=== PATIENT | female | born 1990 | race Caucasian/White ===

== ENCOUNTER 2020-01-31 20:33 | Emergency (ER) | payer SELFPAY ==
--- NOTE | 2020-01-31 21:14 | RAD ---
EXAM DESCRIPTION: Knee,Right Complete CLINICAL HISTORY: 30 years Female suspet dislocation COMPARISON: None TECHNIQUE: AP, lateral and sunrise views of the right knee are obtained FINDINGS: OSSEOUS: There is complete dislocation of the patella laterally. An incomplete fracture along the anterior mid patella as well as a compressive fracture along the medial aspect of the patella cannot be excluded. The medial and lateral compartments of the knee are preserved. There is no evidence of marginal erosive changes to suggest an inflammatory arthritis. SOFT TISSUE: There is no significant soft tissue swelling or mass. No evidence of significant soft tissue calcifications. No radiopaque foreign bodies. There is no evidence of a suprapatellar effusion. IMPRESSION: There is complete dislocation of the patella laterally relative to the distal femur. An incomplete fracture along the anterior mid patella as well as a compressive fracture along the medial aspect of the patella cannot be excluded. Remainder of findings as described above. Electronically signed by: Paris Taveras MD 01/31/2020 9:12 PM CDT
--- NOTE | 2020-01-31 21:40 | ED.PDOC ---
History of Present Illness - General Chief Complaint: Lower Extremity Injury Stated Complaint: knee out of place Time Seen by Provider: 01/31/20 20:39 Source: patient Exam Limitations: no limitations - History of Present Illness Initial Comments: Patient is a 30-year-old -Irish female presented emergency room secondary to what appears to be a lateral dislocation of the right kneecap. The patient reports that she has had multiple such dislocations in the past and has always been able to get them back and on her own. The patient was just walking when it slipped out this time. Her other knee Also slipped out this time as well, which is not uncommon but she was able to get it back in on her own. No real trauma to say. No lacerations. No loss of sensation. The patient has had problems with both knees for the last 8 years. No recent trauma to the knees either. The patient just ate prior to arrival. Timing/Duration: momentarily Severity: moderate Improving Factors: immobilization Worsening Factors: movement Associated Symptoms: denies symptoms Review of Systems - Review of Systems Constitutional: States: no symptoms reported EENTM: States: no symptoms reported Respiratory: States: no symptoms reported Cardiology: States: no symptoms reported Gastrointestinal/Abdominal: States: no symptoms reported Genitourinary: States: no symptoms reported Musculoskeletal: States: see HPI Skin: States: no symptoms reported Neurological: States: no symptoms reported Endocrine: States: no symptoms reported All other Systems: No Change from Baseline Past Medical History (General) - Patient Medical History Hx Seizures: No Hx Stroke: No Hx Dementia: No Hx Asthma: Yes - childhood Hx of COPD: No Hx Cardiac Disorders: No Hx Congestive Heart Failure: No Hx Pacemaker: No Hx Hypertension: No Hx Thyroid Disease: No Hx Diabetes: No Hx Gastroesophageal Reflux: Yes Hx Renal Disease: No Hx Cancer: No Hx of HIV: No Hx Hepatitis C: No Hx MRSA: No Surgical History: no surgical history - Vaccination History Hx Tetanus, Diphtheria Vaccination: No Hx Influenza Vaccination: No Hx Pneumococcal Vaccination: No Immunizations Up to Date: No - Social History Hx Tobacco Use: Yes Hx Chewing Tobacco Use: No Hx Alcohol Use: No Hx Substance Use: Yes Hx Substance Use Treatment: Yes Hx Depression: Yes Feels Threatened In Home Enviroment: No Feels Threatened In a Relationship: No Hx Physical Abuse: No Hx Emotional Abuse: No Hx Suspected Abuse: No - Activities of Daily Living Hospice Agency (if applicable):: None - Female History Patient is a Female of Child Bearing Age (10 -59 yrs old): Yes - states irregular periods Patient : - states no Family Medical History - Family History Mother Family History: No Known Physical Exam - Physical Exam General Appearance: Alert, Comfortable, No apparent distress Eye Exam: bilateral normal Ears, Nose, Throat: hearing grossly normal, normal pharynx Neck: full range of motion, supple Respiratory: lungs clear, normal breath sounds, no respiratory distress, no accessory muscle use Cardiovascular/Chest: normal peripheral pulses, regular rate, rhythm, no edema Peripheral Pulses: dorsalis pedis,right: 2+, dorsalis pedis,left: 2+, posterior tibialis,right: 2+, posterior tibialis,left: 2+ Gastrointestinal/Abdominal: non tender, soft Rectal Exam: deferred Extremity: no pedal edema, no calf tenderness, normal capillary refill, other - See history of present illness. Patellar tendon mechanism is obviously intact. Neurologic: firer helper II-XII nml as tested, no motor/sensory deficits, alert, normal mood/affect, oriented x 3 Skin Exam: normal color Comments: Vital Signs - 24 hr 01/31/20 20:35 Temperature 98.2 F Pulse Rate [ 100 H monitor] Respiratory 20 Rate Blood Pressure 123/105 [right arm] O2 Sat by Pulse 100 Oximetry Progress - Progress Progress: 01/31/20 21:40 The patient is a 31-year-old female presented emergency room secondary to chronic current dislocation of the kneecaps. She was able to get the left one back in place on her own but she still has a lateral dislocation of the right as based on the x-rays. X-ray cannot definitively rule out fracture but given the history of no significant trauma, and with the physical exam, this is unlikely. Risk and benefits of reduction were explained and the patient agrees to proceed. The patient received 4 mg of Ativan to help as a muscle relaxer along with the pain medications that she already received with EMS. Gentle traction was applied distally on the foot and medial traction was applied to the kneecap. Reduction was obtained very easily. Kneecap slides in the appropriate position without difficulty currently, and with minimal discomfort. Patellar tendon mechanism is functional. The patient is going to be placed in a knee immobilizer to allow for healing. She needs to remain in the immobilizer for at least 2 to 3 weeks. It would be good for her to follow-up with orthopedics to have this issue addressed so it does not happen again. Motrin can be used for discomfort. ER warnings are given for any significant worsening. halie childress [id number] - Results/Orders Results/Orders: X-rays of the right knee show a laterally dislocated patella. Unable to definitively rule out fractures on the x-rays however given the clinical presentation and the history of the incident fractures are highly unlikely. Departure - Departure Clinical Impression: Dislocated patella Qualifiers: Encounter type: initial encounter Laterality: right Qualified Code(s): S83.004A - Unspecified dislocation of right patella, initial encounter Disposition: Discharge to Home or Self Care Condition: Fair Departure Forms: ED Discharge - Pt. Copy, Patient Portal Self Enrollment Instructions: Dislocated Kneecap (DC) Diet: regular diet Activity: no exercise Additional Instructions: The patient is a 31-year-old female presented emergency room secondary to chronic current dislocation of the kneecaps. She was able to get the left one back in place on her own but she still has a lateral dislocation of the right as based on the x-rays. X-ray cannot definitively rule out fracture but given the history of no significant trauma, and with the physical exam, this is unlikely. Risk and benefits of reduction were explained and the patient agrees to proceed. The patient received 4 mg of Ativan to help as a muscle relaxer along with the pain medications that she already received with EMS. Gentle traction was applied distally on the foot and medial traction was applied to the kneecap. Reduction was obtained very easily. Kneecap slides in the appropriate position without difficulty currently, and with minimal discomfort. Patellar tendon mechanism is functional. The patient is going to be placed in a knee immobilizer to allow for healing. She needs to remain in the immobilizer for at least 2 to 3 weeks. It would be good for her to follow-up with orthopedics to have this issue addressed so it does not happen again. Motrin can be used for discomfort. ER warnings are given for any significant worsening..
[2020-01-31 22:24] VITALS: BP 106/62; TEMP 98; O2SAT 98
== END 2020-01-31 22:20 | disposition home or self-care (01) ==
LOC: ER 20:33
DX: S83.014A Lateral dislocation of right patella, initial encounter (principal); X58.XXXA Exposure to other specified factors, initial encounter; Y92.9 Unspecified place or not applicable
CPT/HCPCS: 73562; J2060

== ENCOUNTER → 2020-11-04 | Outpatient (CLI) | payer OTHER | LOC: LAB.NP 09:37 | PROVIDERS: ATTEND Nurse Practitioner Family | DX: N91.2 Amenorrhea, unspecified (principal) ==

== ENCOUNTER → 2020-11-07 | Outpatient (CLI) | payer OTHER ==
--- NOTE | 2020-11-08 20:23 | US ---
EXAM DESCRIPTION: Pelvis Transvaginal: Ultrasound. CLINICAL HISTORY: 30 years Female AMENORRHEA 4, para 0. COMPARISON: None. TECHNIQUE: Endovaginal scanning; Barnes-scale and Doppler modes. FINDINGS: Uterus 2.8 x 1.9 x 1.1 cm 3 mL.. Uterus not retroflexed.. Endometrial thickness 2.3 mm. No intrauterine gestational sac. Myometrium heterogeneous. Cervix no cysts.. Cul-de-sac no fluid. Right ovary 1.8 x 1.7 x 1.6 cm 2.7 mL.. Normal Waveform and color Doppler vascularity. No follicles or cysts. No adnexal mass or free fluid. Left ovary 0.6 x 1.5 x 0.7 cm 0.9 mL. Normal Waveform and color Doppler vascularity. No follicles or cysts. No adnexal mass or free fluid. IMPRESSION: 1. No intrauterine gestation. Uterus is very small but normal orientation. No fluid in the endometrial canal. No fluid in the cul-de-sac. 2. Bilateral ovaries are small with normal vascularity. No adnexal mass or free fluid. Electronically signed by: Wilder March MD 11/08/2020 8:21 PM [facility]
== END ==
LOC: US 10:36
PROVIDERS: ATTEND Nurse Practitioner Family
DX: N91.2 Amenorrhea, unspecified (principal); N85.9 Noninflammatory disorder of uterus, unspecified; N83.9 Noninflammatory disorder of ovary, fallopian tube and broad ligament, unspecified